=== PATIENT | female | born 1965 | race Two or more races ===

== ENCOUNTER 2025-02-05 10:32 | Emergency (ER) | payer BC ==
[~2025-02-05] VITALS: Ht 157.5 cm; Wt 52.2 kg
[2025-02-05] MEDS ORDERED: CARVEDILOL ER40 MG (10:56)
[2025-02-05] MEDS ORDERED: CLONAZEPAM0.125 MG (10:56)
[2025-02-05] MEDS ORDERED: ZESTRIL2.5 MG (10:57)
[2025-02-05] MEDS ORDERED: AMLODIPINE-OLM1 EAC2 (10:57)
[2025-02-05] MEDS ORDERED: NEXIUM2.5 MG (10:58)
[2025-02-05] MEDS ORDERED: ZETIA10 MG (10:59)
[2025-02-05 11:48] LABS: BASO % 0.5 % (0.1-1.2); EOS # 0.01 (0.04-0.54); EOS % 0.2 % (0.7-7.0); LYMPH # 0.67 (1.18-3.74); LYMPH % 10.8 % (19.3-53.1); MEAN PLATELET VOLUME 9.60 fl (9.4-12.4); MONO # 0.59 (0.24-0.82); MONO % 9.5 % (4.7-12.5); NEUT # 4.87 (1.56-6.13); NEUT % 78.8 % (34.0-71.1); RED CELL DISTRIBUTION WIDTH 12.1 % (11.6-14.4)
[2025-02-05 12:09] LABS: URINE APPEARANCE Clear; URINE BILIRRUBIN Negative (NEGATIVE); URINE BLOOD Negative; URINE COLOR Yellow; URINE GLUCOSE Negative (NEGATIVE); URINE KETONE Negative (NEGATIVE); URINE LEUKOCYTE Trace; URINE NITRATE Negative; URINE PROTEIN Negative (NEGATIVE); URINE UROBILINOGEN 0.2 E.U./dl
[2025-02-05 12:10] LABS: URINE BACTERIA 13.1 uL (0.0-1933); URINE RBC 2.0 uL (0.0-20.8); URINE WBC 10.4 uL (0.0-23.2)
[2025-02-05 12:28] LABS: URINE CAST 0.00 uL (0.0-1.40); URINE EPITHELIAL CELLS 1.2 uL (0.0-38.8)
[2025-02-05 12:45] LABS: COVID-19 AG POSITIVE (NEGATIVE)
[2025-02-05 13:34] LABS: BUN CREA RATIO 18.0 (7.0-25.0); CREATININE SERUM 0.74 mg/dL (0.55-1.02); GFR 79.78; GLUCOSE FASTING 88.0 mg/dL (65-100); OSMOLALITY SERUM 266.0 MOSM/KG (275-295)
== END 2025-02-05 13:29 | disposition home or self-care (01) ==
LOC: ER 13:12
PROVIDERS: Emergency Medicine
DX: U07.1 COVID-19 (principal); B34.9 Viral infection, unspecified; Z88.2 Allergy status to sulfonamides; Z88.8 Allergy status to other drugs, medicaments and biological substances; I10 Essential (primary) hypertension